=== PATIENT | female | born 1990 | race Caucasian/White ===

== ENCOUNTER → 2017-04-10 | Outpatient (REF) ==
[~2017-04-10] MED LIST: DILAUDID 2MG TAB2 MG PO; FLOMAX 0.40.4 MG/CAP PO; LORTAB 5/500 501 TAB
== END ==
LOC: WSOH 09:45
DX: Z02.89 Encounter for other administrative examinations (principal)

== ENCOUNTER → 2017-05-22 | Outpatient (REF) | LOC: WSOH 15:30 | DX: Z02.89 Encounter for other administrative examinations (principal) ==

== ENCOUNTER → 2023-09-30 | Outpatient (CLI) | payer OTHER ==
[2023-09-30 07:35] LABS: BASO # 0.1 K/mm3 (0.0-0.2); BASO % 0.8 % (0.0-2.0); EOS # 0.4 K/mm3 (0.0-0.7); EOS % 5.5 % (0.0-4.0); GRAN # 4.6 K/mm3 (1.4-6.5); GRAN % 57.9 % (42.2-75.2); HEMATOCRIT 41.1 % (37.0-47.0); HEMOGLOBIN 14.3 g/dl (12.5-16.0); LYMPH # 2.2 K/mm3 (1.2-3.4); MEAN CELL VOLUME 91 fl (80.0-100.0); MEAN CORPUSCULAR HEMOGLOBIN 32 pg (27-31); MEAN CORPUSCULAR HGB CONC 35 g/dl (33.0-37.0); MEAN PLATELET VOLUME 9.7 fl (7.4-10.4); MONO # 0.6 K/mm3 (0.1-0.6); MONO % 7.5 % (1.7-9.3); PLATELET COUNT 281 K/mm3 (130-400); RED BLOOD COUNT 4.54 M/mm3 (4.10-5.30); REDCELL DISTRIBUTION WIDTH-CV 11.8 % (11.5-14.5)
[2023-09-30 07:50] LABS: ALBUMIN 3.4 gm/dL (3.5-5.0); BILIRUBIN,TOTAL 0.6 mg/dL (0.2-1.2); CALCIUM 9.2 mg/dL (8.4-10.2); CHOLESTEROL RISK RATIO 4.6; CREATININE, serum 1.01 mg/dL (0.57-1.11); POTASSIUM 4.3 mmol/L (3.5-4.5)
[2023-09-30 08:09] LABS: THYROID STIMULATING HORMONE 5.717 uIU/mL (0.350-4.940)
== END ==
LOC: COL.LAB 07:05
PROVIDERS: Internal Medicine
DX: Z00.00 Encounter for general adult medical examination without abnormal findings (principal)

== ENCOUNTER → 2023-12-11 | Outpatient (CLI) | payer OTHER | LOC: COL.LAB 07:32 | DX: R79.89 Other specified abnormal findings of blood chemistry (principal) ==

== ENCOUNTER → 2024-03-16 | Outpatient (CLI) | payer OTHER | LOC: COL.RAD 08:56 | DX: D25.9 Leiomyoma of uterus, unspecified (principal) ==